=== PATIENT | female | born 1965 | race Caucasian/White ===

== ENCOUNTER → 2024-07-10 16:42 | Outpatient (CLI) | payer BC, SELFPAY ==
--- NOTE | 2024-07-10 16:47 | DI.RAD.S_ITS ---
PROCEDURE: XR HIP W PEL IF DONE ALCIRA MIN 4V INDICATIONS: BI HIP PAIN TECHNIQUE: AP pelvis with lateral view(s) of the bilateral hip(s). COMPARISON: None. FINDINGS: No acute fracture or dislocation. The hip joints and sacroiliac joints are preserved. Minimal pubic symphysis osteoarthritis. Embolization clips versus sutures overlying the sacrum and left hemipelvis. IMPRESSION: No acute radiographic abnormality of the pelvis or hips. Dictated by: Ulysses Cunha M.D. on 07/11/2024 at 9:21 Approved by: Ulysses Cunha M.D. on 07/11/2024 at 9:23
== END ==
PROVIDERS: PCP Family Medicine; Referring Provider Family Medicine; Visit Provider Family Medicine
DX: M25.551 Pain in right hip (principal); M25.552 Pain in left hip
CPT/HCPCS: 73522

== ENCOUNTER 2024-12-07 14:33 | Emergency (ER) | payer BC, SELFPAY ==
[2024-12-07] VITALS (9 sets, daily range): BP systolic 136–186; BP diastolic 71–100; PULSE 69–96; RESP 14–19; TEMP 36.3–37.2; O2SAT 93–97; BMI 30.9
--- NOTE | 2024-12-07 20:54 | ED_ITS ---
HPI - Abdominal Pain General Chief Complaint: Abdominal Pain Stated Complaint: Upper left side pain X 5 DAYS Time Seen by Provider: 12/07/24 20:53 Source: patient, RN notes reviewed and old records reviewed Mode of arrival: Ambulatory Limitations: no limitations History of Present Illness HPI narrative: 59-year-old female history of chronic pain with left flank pain for 8 days worsening over time and wrapping around towards the front. Patient denies any fevers. She was has a little bit nausea today but none before. No vomiting. States pain has been increasing over time sort of gradually. She notes it does hurt in the front as well. She was feels like the skin is kind of very sensitive but it feels deeper as well. She states she normally has a loose stools because she was had a prior colectomy but they have been a little bit more formed. No black or bloody stools. No dysuria urgency or frequency. No new vaginal bleeding or discharge. Patient notes home medications include hydroxyzine, gabapentin, Paxil, omeprazole, patient states she was had prior colectomy, microdiskectomy and cholecystectomy. Reports allergies to penicillin and sulfa. No tobacco, alcohol or recreational drugs. Dr. Arroyo is her primary care. She states that she has a negative urine at a walk-in clinic several days ago. Related Data Previous Rx's Medication Instructions Recorded ciprofloxacin HCl 500 mg tablet 500 mg PO Q12H 10 days #20 tabs 12/07/24 ketorolac 10 mg tablet 10 mg PO Q6H PRN pain 5 days #10 12/07/24 tabs mesalamine 1.2 gram tablet,delayed 2.4 g (2 x 1.2 gram) PO DAILY 10 12/07/24 release days #20 tabs metoclopramide HCl 10 mg tablet 10 mg PO Q6H PRN nausea and 12/07/24 (Reglan) vomiting #10 tabs metronidazole 500 mg tablet 500 mg PO TID 10 days #30 tabs 12/07/24 Review of Systems Review of Systems ROS Unobtainable: All systems reviewed & are unremarkable except as noted in HPI and below Patient History Social History Smoking Status: Never smoker Smoking Status: Never smoker Exam Narrative Exam Narrative: GENERAL: Alert and oriented x three, female in moderate distress. HEENT: Head normocephalic, atraumatic, EOMI, pupils reactive, face symmetric, moist mucous membranes NECK: Supple, full range of motion CARDIOVASCULAR: Regular rate and rhythm without murmurs, rubs or gallops. RESPIRATORY: Breath sounds equal bilaterally, no wheezes rales or rhonchi. ABDOMEN: Soft, patient has a left lower quadrant tenderness. Normoactive bowel sounds all 4 quadrants. No guarding or rebound, rigidity, no mass : Mild left flank tenderness, no right flank tenderness. No rash or skin changes appreciated. BACK: No cervical, thoracic or lumbar vertebral point tenderness. Patient has normal range of range of motion. Muscle strength 5/5 lower extremities. Cap refill less than 2 seconds bilateral lower extremities. Sensation is intact in the lower extremities. EXTREMITIES: Normal range of motion, no clubbing or edema. Neurovascularly intact NEUROLOGICAL: Cranial nerves II through XII grossly intact. Moving all extremities SKIN: Warm, dry, no petechiae, no rashes or lesions. Initial Vital Signs Initial Vital Signs: Vital Signs Temperature 98.9 F 12/07/24 14:56 Pulse Rate 96 H 12/07/24 14:56 Respiratory Rate 14 12/07/24 14:56 Blood Pressure 176/95 H 12/07/24 14:56 Pulse Oximetry 96 12/07/24 14:56 Oxygen Delivery Method Room Air 12/07/24 14:56 Course Orders Ordered: ED Orders 12/07/24 21:00 Urine Culture Stat Urine Microscopic Stat 12/07/24 21:25 CT abdomen pelvis w con Stat 12/07/24 21:33 CBC Auto Diff [Complete Blood Count AUTO DIFF] Stat CMP [Comprehensive Metabolic Panel] Stat Lipase Stat Discontinued Medications Ciprofloxacin (Ciprofloxacin 250 Mg Tablet) 500 mg PO NOW ONE Stop: 12/07/24 22:43 Last Admin: 12/07/24 22:48 Dose: 500 mg Documented By: MICHAEL Ketorolac Tromethamine (Ketorolac 30 Mg/Ml Vial) 30 mg IM NOW ONE Stop: 12/07/24 21:06 Last Admin: 12/07/24 21:12 Dose: 30 mg Documented By: MICHAEL Metronidazole (Metronidazole 500 Mg Tablet) 500 mg PO NOW ONE Stop: 12/07/24 22:44 Last Admin: 12/07/24 22:48 Dose: 500 mg Documented By: MICHAEL Ondansetron HCl (Ondansetron 4 Mg Odt) 4 mg SL NOW ONE Stop: 12/07/24 21:06 Last Admin: 12/07/24 21:12 Dose: 4 mg Documented By: LS Vital Signs Vital signs: Vital Signs - 8 hr 12/07/24 21:21 12/07/24 21:21 12/07/24 21:31 Pulse Rate 76 77 Respiratory Rate 18 Blood Pressure 186/86 H Pulse Oximetry 96 93 Oxygen Delivery Method Room Air 12/07/24 21:33 12/07/24 21:33 12/07/24 22:00 Pulse Rate 75 77 Respiratory Rate 16 Blood Pressure 148/79 H Pulse Oximetry 96 95 Oxygen Delivery Method 12/07/24 22:08 12/07/24 22:08 12/07/24 22:30 Pulse Rate 74 74 Respiratory Rate 16 Blood Pressure 147/78 H Pulse Oximetry 94 93 Oxygen Delivery Method Room Air 12/07/24 22:31 12/07/24 22:31 Pulse Rate 69 Respiratory Rate 16 Blood Pressure 136/71 Pulse Oximetry 93 Oxygen Delivery Method Room Air MDM - Abdominal Pain Lab Data 12/07/24 21:33 12/07/24 21:33 Labs: Lab Results 12/07/24 12/07/24 Range/Units 21:00 21:33 WBC 6.0 (4.5-11.0) X10^3/uL RBC 4.52 (4.0-5.2) X10^6/uL Hgb 13.7 (12.0-16.0) g/dL Hct 40.9 (36-46) % MCV 90.4 (80-100) fL MCH 30.3 (26-34) PG MCHC 33.6 (30-36) % RDW 14.2 (11.6-14.8) % Plt Count 293 (150-400) X10^3/uL Neut % (Auto) 53.2 (50-75) % Lymph % (Auto) 37.5 (25-40) % [place] % (Auto) 4.3 (3-14) % Eos % (Auto) 4.5 H (2-4) % Baso % (Auto) 0.5 (0-2) % Neut # (Auto) 3200 (3220-7234) /uL Lymph # (Auto) 2300 (7197-6444) /uL [place] # (Auto) 300 (0-900) /uL Eos # (Auto) 300 (0-450) /uL Baso # (Auto) 0 (0-100) /uL Sodium 138 (137-145) mmol/L Potassium 4.1 (3.4-5.1) mmol/L Chloride 105 (98-107) mmol/L Carbon Dioxide 25 (22-32) mmol/L BUN 9 (7-17) mg/dL Creatinine 0.80 (0.52-1.04) mg/dL Estimated GFR > 60 (>60) mL/min BUN/Creatinine Ratio 11.3 (6-22) Glucose 118 H (70-99) mg/dL Calcium 9.4 (8.4-10.2) mg/dL Total Bilirubin 0.5 (0.2-1.3) mg/dL AST 34 (14-36) IU/L ALT 33 (<35) IU/L Alkaline Phosphatase 80 (38-126) U/L Total Protein 7.8 (6.3-8.2) g/dL Albumin 4.5 (3.5-5.0) g/dL Globulin 3.3 (1.7-4.1) g/dL Albumin/Globulin Ratio 1.4 (1.0-2.8) Lipase 107 (23-300) U/L Urine RBC 0-1/hpf (0-5/HPF) Urine WBC 0-1/hpf (0-5/HPF) Ur Squamous Epith Cells 1-5 /hpf (0-5/HPF) Urine Bacteria Few (2-10) H (None) Hyaline Casts 1-5/lpf (None) Urine Mucus 2+ H (Negative) Vol Urine Centrifuged 10ml (spun) Point of care testing: Urine Dip Bedside Urine Glucose Negative Bedside Urine Bilirubin - Negative Bedside Urine Ketone - Negative Urine Specific [place] 1.025 Bedside Urine Occult Blood - Negative Bedside Urine pH 6.0 Bedside Urine Protein +/- 15 Bedside Urine Urobilinogen 0.2 Bedside Urine Nitrite - Negative Bedside Urine Leukocytes - Negative Esterase MDM Narrative Medical decision making narrative: 59-year-old female complaint mostly of flank pain but has a little bit tender anteriorly. Pyelonephritis, diverticulitis although patient states she was had prior colectomy, colitis are all in the differential. Patient does have a history of ulcerative colitis which is why she was had her colectomy with J- pouch. Was found to have pouchitis on CT nontoxic does not appear septic. She follows with Dr. Atkinson with Gastroenterology at [facility]. She does note she had a proctitis fairly recently which was treated with mesalamine and sounds like Cipro and Flagyl. CBC, CMP lipase are normal. Point of care urine is negative. Urine microscopy CT shows total colectomy with J-pouch formation mild submucosal hypoattenuation J-pouch consistent with pouchitis. Patient had Toradol and Zofran. Patient is feeling improved. Spoke with Dr. Arroyo general surgery reviewed patient could follow up outpatient. With the patient was subspecialist would defer decisions to them. Spoke with Gastroenterology and [facility], Dr. Atkinson @ [phone], recommend mesalamine, preferably enema but sometimes is hard to find would recommend oral 2.4 mg q.day, as well as Cipro/Flagyl with dosing same to diverticulitis for 10 days. Patient is to call tomorrow to set up follow up and they will adjust medications as needed. Discussed with the patient she feels comfortable with this plan. Discharge Plan Departure Patient Disposition: Home Clinical Impression: Pouchitis Activity Restrictions/Additional Instructions: Follow up with Dr. Atkinson your avionics repair technician, call tomorrow to set up follow up. You can take acetaminophen as tolerated up to a 1000 mg every 6 hours, can also take Ketorolac 1 tablet every 6 hours as needed for pain. Do not take other NSAIDs such as ibuprofen, Aleve or naproxen with this medication. Take antibiotics as prescribed. The Flagyl or metronidazole we will make you vomit if you take it with alcohol. You can take Reglan 1 tablet every 6 hours as needed for nausea recommend taking this about 20 minutes prior to your antibiotics. Your imaging today did show pouchitis who recommends similar course of medication as your last episode of proctitis with mesalamine daily and Cipro and Flagyl oral antibiotics. Prescriptions were sent to [facility] in [place]. Please return for fevers, new or worsening abdominal back or flank pain, persistent vomiting, black or bloody stools or other new or concerning changes. Prescriptions: New ketorolac 10 mg tablet 10 mg PO Q6H PRN (Reason: pain) 5 Days Qty: 10 0RF ciprofloxacin HCl 500 mg tablet 500 mg PO Q12H 10 Days Qty: 20 0RF metronidazole 500 mg tablet 500 mg PO TID 10 Days Qty: 30 0RF metoclopramide HCl [Reglan] 10 mg tablet 10 mg PO Q6H PRN (Reason: nausea and vomiting) Qty: 10 0RF mesalamine 1.2 gram tablet,delayed release (DR/EC) 2.4 g PO DAILY 10 Days Qty: 20 0RF Referrals: Kilo Atkinson MD [Non-Staff] - Amarilys Arroyo MD [Primary Care Provider] - Stand Alone Forms: Patient Portal/API/Survey, Work Release Note
[2024-12-07] MEDS: KETOROLAC 30 MG/ML VIAL IM (21:12)
[2024-12-07] MEDS: ONDANSETRON 4 MG ODT SL (21:12)
--- NOTE | 2024-12-07 21:25 | DI.CT.S_ITS ---
PROCEDURE: CT ABDOMEN PELVIS W CON INDICATIONS: L flank and LLQ pain x 8 days, hx colectomy TECHNIQUE: After the administration of intravenous contrast, axial sections acquired from the lung bases to the pubic symphysis. Coronal and sagittal reformats were performed. For radiation dose reduction, the following was used: automated exposure control, adjustment of mA and/or kV according to patient size. COMPARISON: None. FINDINGS: Image quality: Diagnostic. Lower Chest: No significant findings. ABDOMEN: Liver: No solid mass. Hepatic steatosis. Patent portal vein. Gallbladder: Absent. Biliary ducts: No biliary dilation. Pancreas: No ductal dilation. Spleen: Size is within normal limits. Adrenal Glands: No adrenal nodules. Kidneys and Ureters: No hydronephrosis. No solid mass. No complex renal cystic lesion which requires follow up. Stomach and Bowel: Normal colonic caliber, without significant wall thickening. Colectomy with J-pouch formation. Mild submucosal hyperenhancement the J-pouch Peritoneum: No abnormal intraperitoneal fluid. No free air. Ventral Wall: Small umbilical hernia containing fat. Abdominal Nodes: No retroperitoneal or mesenteric adenopathy by size criteria. Vessels: Aorta and inferior vena cava are normal in size. PELVIS: Pelvic Organs: Unremarkable. Bladder: No bladder wall thickening, accounting for underdistention. Pelvic Nodes: No enlarged lymph nodes. Miscellaneous: No inguinal hernias are seen. Bones: No aggressive osseous abnormality. IMPRESSION: Total colectomy with J-pouch formation. Mild submucosal hyperattenuation the J-pouch, consistent with pouchitis. Dictated by: Jeremy Lara M.D. on 12/07/2024 at 21:57 Approved by: Jeremy Lara M.D. on 12/07/2024 at 22:00
[2024-12-07 21:31] LABS: Bacteria Urine Few (2-10); Hyaline Casts Urine 1-5/LPF; Mucus Urine 2+ (Negative); RBC Urine 0-1/HPF (0-5/HPF); Squamous Epithelial Cell Urine 1-5 /HPF (0-5/HPF); Urine Volume 10mL (spun); WBC Urine 0-1/HPF (0-5/HPF)
--- NOTE | 2024-12-07 21:38 | PC.NURSE ---
Pt to imaging via ED stretcher with appraisal technician.
[2024-12-07 21:43] LABS: Add Manual Diff / Slide Review NO; Basophils Absolute Auto 0 /uL (0-100); Basophils Percent Auto 0.5 % (0-2); Eosinophils Absolute Auto 300 /uL (0-450); Eosinophils Percent Auto 4.5 % (2-4); Hematocrit 40.9 % (36-46); Hemoglobin 13.7 g/dL (12.0-16.0); Lymphocytes Absolute Auto 2300 /uL (1100-4500); Lymphocytes Percent Auto 37.5 % (25-40); Mean Corpuscular HGB Conc 33.6 % (30-36); Mean Corpuscular Hemoglobin 30.3 PG (26-34); Mean Corpuscular Volume 90.4 fL (80-100); Monocytes Absolute Auto 300 /uL (0-900); Monocytes Percent Auto 4.3 % (3-14); Neutrophils Absolute Auto 3200 /uL (1500-7000); Neutrophils Percent Auto 53.2 % (50-75); Platelet Count 293 X10^3/uL (150-400); Red Blood Cell Count 4.52 X10^6/uL (4.0-5.2); Red Cell Distribution Width 14.2 % (11.6-14.8)
[2024-12-07 21:55] LABS: Alanine Aminotransferase 33 IU/L (<35); Albumin 4.5 g/dL (3.5-5.0); Albumin Globulin Ratio 1.4 (1.0-2.8); Alkaline Phosphatase 80 U/L (38-126); Aspartate Aminotransferase 34 IU/L (14-36); BUN Creatinine Ratio 11.3 (6-22); Bilirubin Total 0.5 mg/dL (0.2-1.3); Blood Urea Nitrogen 9 mg/dL (7-17); Calcium 9.4 mg/dL (8.4-10.2); Carbon Dioxide 25 mmol/L (22-32); Chloride 105 mmol/L (98-107); Estimated Glomerular Filt Rate > 60 mL/min (>60); Globulin 3.3 g/dL (1.7-4.1); Glucose 118 mg/dL (70-99); HEMOLYSIS < 15 (0-50); Lipase 107 U/L (23-300); Potassium 4.1 mmol/L (3.4-5.1); Sodium 138 mmol/L (137-145); Total Protein 7.8 g/dL (6.3-8.2)
[2024-12-07] MEDS: CIPROFLOXACIN 250 MG TABLET 500 MG PO (22:48)
[2024-12-07] MEDS: metroNIDAZOLE 500 MG TABLET PO (22:48)
== END 2024-12-07 23:07 | disposition home or self-care (01) ==
PROVIDERS: Emergency Medicine; Emergency Provider Emergency Medicine; PCP Family Medicine
DX: K91.850 Pouchitis (principal); R11.0 Nausea
CPT/HCPCS: 36415; 74177; 80053; 81003; 81015; 83690; 85025; 87086; 96372; 99284; J1885

== ENCOUNTER → 2024-12-15 17:09 | Outpatient (CLI) | payer BC, SELFPAY ==
--- NOTE | 2024-12-15 17:10 | DI.MG.S_ITS ---
MM screening mammo BI: 12/15/2024. BI-RADS: 1 CLINICAL: 59-year old female for bilateral screening mammogram. Tyrer-Cuzick lifetime risk of 11.1%. No personal or first-degree family history of breast cancer. PRIOR EXAMS No prior examinations available. MAMMOGRAPHY TECHNIQUE: 2D and 3D (tomosynthesis) digital mammographic views obtained, with additional images as needed for full coverage. Current study was also evaluated with a Computer Aided Detection (CAD) system. DENSITY C. The breasts are heterogeneously dense, which may obscure small masses. MAMMOGRAPHY FINDINGS Bilateral: No suspicious mass, asymmetry, microcalcification, or other abnormality seen. IMPRESSION: * No evidence of malignancy. RECOMMENDATIONS Bilateral * Annual screening mammography. OVERALL ASSESSMENT CATEGORY BI-RADS-1: Negative. The [employer] recommends annual screening mammography beginning at age 40 for women with average risk of breast cancer. ELECTRONICALLY SIGNED: Ezekiel Leblanc M.D. on 12/18/2024 at 07:35:45 AM PT Interpreting Station ID: [id number]
== END ==
PROVIDERS: PCP Family Medicine; Referring Provider Family Medicine; Visit Provider Family Medicine
DX: Z12.31 Encounter for screening mammogram for malignant neoplasm of breast (principal); R92.333 Mammographic heterogeneous density, bilateral breasts
CPT/HCPCS: 77063; 77067

== ENCOUNTER → 2025-02-08 15:26 | Outpatient (CLI) | payer BC, SELFPAY ==
--- NOTE | 2025-02-08 | DI.RAD.S_ITS ---
PROCEDURE: XR THORACIC SPINE 2V INDICATIONS: BACK PAIN TECHNIQUE: 3 views of the thoracic spine were acquired. COMPARISON: None. FINDINGS AND IMPRESSION: Mild diffuse thoracic spondylosis with multilevel osteophytes, disc space height loss, facet arthropathy. No acute displaced fracture or traumatic subluxation. No suspicious soft tissue calcifications. If there is high concern for further derangement, consider MRI evaluation. Dictated by: Merlin Villavicencio M.D. on 02/10/2025 at 6:55 Approved by: Merlin Villavicencio M.D. on 02/10/2025 at 6:55
--- NOTE | 2025-02-08 | DI.RAD.S_ITS ---
PROCEDURE: XR CERVICAL SPINE 2V OR 3V INDICATIONS: BACK PAIN TECHNIQUE: 3 view(s) of the cervical spine were acquired. COMPARISON: None. FINDINGS AND IMPRESSION: Moderate to severe cervical spondylosis, with disc space height loss, osteophytes, and facet arthropathy most severe from C4-C7. Vertebral body heights are well maintained. No traumatic subluxation. There is prevertebral soft tissue swelling. Thickness measures up to 1 cm at C2. Consider MRI for further evaluation depending on clinical context. Dictated by: Merlin Villavicencio M.D. on 02/10/2025 at 6:47 Approved by: Merlin Villavicencio M.D. on 02/10/2025 at 6:48
--- NOTE | 2025-02-08 | DI.RAD.S_ITS ---
PROCEDURE: XR LUMBAR SPINE 2-3V INDICATIONS: BACK APIN TECHNIQUE: 3 views of the lumbar spine were acquired. COMPARISON: None. FINDINGS AND IMPRESSION: Moderate overall spondylosis, with almost complete disc space height loss at L5-S1. Facet arthropathy and osteophytes are also present. No acute fracture. No traumatic subluxation. If there is high concern for further derangement, consider MRI evaluation. Suture lines are seen projecting over the pelvis. Dictated by: Merlin Villavicencio M.D. on 02/10/2025 at 6:51 Approved by: Merlin Villavicencio M.D. on 02/10/2025 at 6:52
== END ==
PROVIDERS: PCP Family Medicine; Referring Provider Family Medicine; Visit Provider Family Medicine
DX: M47.812 Spondylosis without myelopathy or radiculopathy, cervical region (principal); M47.814 Spondylosis without myelopathy or radiculopathy, thoracic region; M47.816 Spondylosis without myelopathy or radiculopathy, lumbar region; M25.551 Pain in right hip; M54.2 Cervicalgia; M54.6 Pain in thoracic spine; M54.50 Low back pain, unspecified
CPT/HCPCS: 72040; 72070; 72100